=== PATIENT | male | born 1975 | race Caucasian/White ===

== ENCOUNTER 2019-07-08 16:13 | Emergency (ER) | payer OTHER, SELFPAY ==
--- NOTE | ~2019-07-08 | CT_ITS ---
EXAMINATION: CT abdomen pelvis wo con DATE: 07/08/2019 17:00 INDICATION: Left-sided back pain. TECHNIQUE: Computed tomography (CT) of the abdomen and pelvis was performed without intravenous contr ast. Automated exposure control and iterative reconstruction technique were employed. The dose-length product was 1436.04 mGy-cm. COMPARISON: CT abdomen and pelvis 03/08/2019 FINDINGS: The visualized portions of the lung bases are clear without pneumonia or pleural effusion. The heart size is normal. No pericardial effusion. There is diffuse hepatic steatosis. The gallbladde r, spleen, pancreas, adrenal glands, and right kidney are normal. There is mild left hydronephrosis a nd hydroureter. There is a 2 mm stone at left ureterovesicular junction. There are no dilated loops o f bowel. The appendix is normal. There are no pathologically enlarged lymph nodes. There is no free i ntraperitoneal fluid. There is mild thoracic spondylosis. IMPRESSION: 1. 2 mm stone at left ureterovesicular junction with mild left hydronephrosis and hydroureter. Reviewed, dictated and finalized at location A. [employer]
--- NOTE | ~2019-07-08 | XR_ITS ---
EXAMINATION: XR abdomen/kub 1V INDICATION: Left-sided kidney stone and left flank pain TECHNIQUE: Supine views of the abdomen were obtained on 2 radiographs. COMPARISON: CT from today FINDINGS: There is a subtle 2 mm calcification of the left pelvis at the expected location of the lef t ureterovesicular junction. A phlebolith is noted in the right pelvis. The bowel gas pattern is norm al. The osseous structures are unremarkable. IMPRESSION: 1. Subtle 2 mm calcification of the left pelvis at the expected location of the left ureterovesicular junction corresponding to the small stone identified on CT. Reviewed, dictated and finalized at location A. [employer]
[2019-07-08 16:18] VITALS: BP 134/83; PULSE 83; RESP 16; TEMP 36.2; O2SAT 100
--- NOTE | 2019-07-08 16:40 | ED.BACK ---
HPI - Back Pain/Injury General Chief Complaint: Back Pain/Injury Stated Complaint: left flank pain Time Seen by Provider: 07/08/19 16:21 Source: patient and RN notes reviewed Mode of arrival: ambulatory Limitations: no limitations History of Present Illness HPI Narrative: Pt is a 44 y/o male who presents to the ED with c/o a 7/10 sharp left flank pain which began an hour ago. Pt states his pain is intermittent, but has been progressively worsening with each episode since onset. He reports he has had difficulty urinating, but denies hematuria, a fever, or chills. He reports he has had a kidney stone in the past, and has had similar symptoms to this. MD elicited complaint: back pain (left flank pain) Pertinent past history: kidney stones Onset (ago): hour(s) (1 hour ago) Timing: intermittent and progressively worsening (with each episode) Severity: moderate (7/10) Pain scale (0-10): 7 Similar Symptoms Previously: Yes Quality: sharp Location: left flank Radiation: none Exacerbating factors: none Relieving factors: none Associated symptoms: other (difficulty urinating) Related Data Allergies Allergy/AdvReac Type Severity Reaction Status Date / Time No Known Allergies Allergy Uncoded 03/08/19 11:53 Review of Systems Constitutional: Constitutional: Denies chills and Denies fever(s) Genitourinary: Genitourinary: Denies hematuria, Denies dysuria and Reports other (difficulty urinating) [facility] Past Medical History Medical History (Updated 07/08/19 @ 18:04 by Patricia Dyer MD) Effusion, right ankle Fracture of right heel Kidney stone MRSA (methicillin resistant Staphylococcus aureus) infection Right hand fracture Family History Family History (Updated 03/08/18 @ 13:51 by DOCTOR UNKNOWN) Father Family history of liver disease Family history of hepatitis Other Family history of coronary artery disease Family history of malignant neoplasm of urinary bladder Social History Social History Second hand tobacco smoke exposure: No Alcohol intake: current Exam Const: General: no acute distress and well developed Orientation/consciousness: oriented to person, oriented to place, oriented to time and patient oriented x3 HENMT: Head: normocephalic Ears: external ears normal General nose exam: Normal external nose present Eyes: General: appearance normal, both eyes and all related structures Conjunctivae: conjunctivae normal Neck: Neck: normal visual inspection and full ROM Chest: Chest palpation & inspection: normal inspection of the chest and no tenderness Resp: Effort & Inspection: normal respiratory effort Auscultation: clear to auscultation bilaterally Cardio: Rate: regular rate Rhythm: regular rhythm GI: GI Palp: No abdominal tenderness and Yes Soft to palpation Skin: General skin exam: normal color and turgor normal Neuro: General: oriented to person, oriented to place, oriented to time and patient oriented x3 Cognition (Neuro): normal cognition Extrem: General: normal to inspection, full ROM and no pedal edema Psych: Appearance: grossly normal Mental Status: mental status grossly normal Affect: normal affect Course Vital Signs Vital signs: Vital Signs Temperature 36.2 C L 07/08/19 16:18 Pulse Rate 83 07/08/19 16:18 Respiratory Rate 16 07/08/19 16:18 Blood Pressure 134/83 07/08/19 16:18 Pulse Oximetry 100 07/08/19 16:18 Temperature 36.2 C L 07/08/19 16:18 Pulse Rate 78 07/08/19 18:37 Respiratory Rate 18 07/08/19 18:37 Blood Pressure 127/92 H 07/08/19 18:37 Pulse Oximetry 97 07/08/19 18:37 MDM - Back Pain/Injury Lab Data Result diagrams: 07/08/19 16:54 07/08/19 16:54 Labs: Lab Results 07/08/19 07/08/19 07/08/19 Range/Units 16:54 16:54 16:54 WBC 10.8 H (4.5-10.0) K/mm3 RBC 5.50 (4.6-6.20) M/mm3 Hgb 15.1 (14.0-18.0) g/dL Hct 46.0 (42.0-52.0) % MCV 83.6 (80-100) fl MCH 27.5 (
[2019-07-08] MEDS: SODIUM CHLORIDE 0.9% IV 1,000 ML 999 ML IV CONT (16:52)
[2019-07-08] MEDS: KETOROLAC 15 MG/ML VIAL (*BKC) IV PUSH (16:52)
[2019-07-08 17:00] LABS: Basophils Absolute Auto 0.1 K/mm3 (0.0-0.1); Basophils Percent Auto 0.8 % (0.2-1.2); Eosinophils Absolute Auto 0.3 K/mm3 (0-0.3); Hemoglobin 15.1 g/dL (14.0-18.0); Immature Granulocyte Absolute 0.04 K/mm3 (0.00-0.031); Immature Granulocyte Percent A 0.4 % (0-0.5); Lymphocytes Percent Auto 24.9 % (18.3-44.2); Mean Corpuscular HGB Conc 32.8 g/dl (32-36); Mean Corpuscular Hemoglobin 27.5 pg (26-34); Mean Corpuscular Volume 83.6 fl (80-100); Mean Platelet Volume 9.6 fl (7.4-10.4); Monocytes Absolute Auto 0.8 K/mm3 (0.1-0.6); Monocytes Percent Auto 7.6 % (2.6-8.5); Neutrophils Absolute Auto 6.9 K/mm3 (1.3-6.7); Neutrophils Percent Auto 63.3 % (45.5-73.1); Platelet Count Result 307 k/mm3 (150-375); White Blood Count 10.8 K/mm3 (4.5-10.0)
[2019-07-08 17:05] LABS: Add Urine Microscopic? YES; Appearance Urine Clear (Clear); Bacteria Urine Trace /hpf; Bilirubin Urine Negative (Negative); Blood Urine 3+ (Negative); Color Urine Yellow (Yellow); Glucose Urine UA Negative (Negative); Ketones Urine Negative (Negative); Leukocyte Esterase Ur Negative LEU/UL (Negative); Mucus Urine Heavy /lpf; Nitrate Urine Negative (Negative); Protein Urine 1+ mg/dL (Negative); RBC Urine >75 /hpf (0-2); Specific Grav Ur 1.029 (1.001-1.035); Urobilinogen Urine Negative mg/dL (<2.0); WBC Urine 0-3 /hpf
[2019-07-08 17:14] LABS: Blood Urea Nitrogen 22 mg/dL (9-20); Calcium 9.6 mg/dL (8.4-10.2); Carbon Dioxide 21 mmol/L (22-30); Chloride 101 mmol/L (98-107); Estimated CRCL calculation 86 ml/min; Estimated Glomerular Filt Rate > 60; Glucose 88 mg/dL (75-110); Potassium 4.1 mmol/L (3.4-5.0); Sodium 141 mmol/L (137-145)
[2019-07-08 18:37] VITALS: BP 127/92; PULSE 78; RESP 18; O2SAT 97
== END 2019-07-08 18:39 | disposition home or self-care (01) ==
PROVIDERS: Emergency Provider Emergency Medicine; PCP Emergency Medicine
DX: N13.2 Hydronephrosis with renal and ureteral calculous obstruction (principal); Z87.442 Personal history of urinary calculi; Z86.14 Personal history of Methicillin resistant Staphylococcus aureus infection
CPT/HCPCS: 36415; 74018; 74176; 80048; 81001; 85025; 96361; 96374; 99284; J1885; J7030

== ENCOUNTER 2019-10-17 09:13 | Emergency (ER) | payer OTHER, SELFPAY ==
--- NOTE | ~2019-10-17 | CT_ITS ---
EXAMINATION: CT abdomen pelvis w con DATE: 10/17/2019 10:18 INDICATION: Left-sided abdominal pain. Nephrolithiasis. TECHNIQUE: Computed tomography (CT) of the abdomen and pelvis was performed with 100 mL Omnipaque-350 intravenous contrast. Automated exposure control and iterative reconstruction technique were employe d. The dose-length product was 1417.24 mGy-cm. COMPARISON: 07/08/2019 FINDINGS: Lung bases are clear. Heart size is normal. No pericardial or pleural effusion. Diffuse hepatic steat osis. Gallbladder, spleen, pancreas, bilateral adrenal glands and kidneys are normal. Bilateral urete rs appear normal. No evident urolithiasis, hydronephrosis or periureteral stranding.. There are a few scattered colonic diverticula without adjacent from 3 change to suggest diverticulitis. Small bowel and appendix are normal. Any fat-containing umbilical hernia. Bladder is normal. No free intraperiton eal gas or fluid. No pathologically enlarged abdominal or pelvic lymphadenopathy. Bone island at the left femoral neck. There is decreased right femoral head neck offset with mild cystic change suggesti ve of cam-type femoral acetabular impingement. IMPRESSION: 1. No acute intra-abdominal/pelvic process. 2. Mild diverticulosis. 3. Diffuse hepatic steatosis. Reviewed, dictated and finalized at location A.
[2019-10-17 09:22] VITALS: BP 148/82; PULSE 91; RESP 18; TEMP 36.7; O2SAT 97
[2019-10-17 09:30] VITALS: BP 142/82; PULSE 90; O2SAT 97
--- NOTE | 2019-10-17 09:41 | ED.BACK ---
HPI - Back Pain/Injury General Chief Complaint: Back Pain/Injury Stated Complaint: Flank pain, hx kidney stones Time Seen by Provider: 10/17/19 09:22 Source: RN notes reviewed History of Present Illness HPI Narrative: Patient presents emergency department from home for left-sided back pain. Patient states pain began approximately 1 week ago. Pain is located in the left flank and radiates around to the left abdomen. Patient states the pain is described as aching in nature. Is been associated with diarrhea. Denies any fevers or chills chest pain shortness of breath nausea vomiting or any other symptoms states he does have a previous history of kidney stones. 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 when he is bouncing around in a forklift and moving Related Data Allergies Allergy/AdvReac Type Severity Reaction Status Date / Time No Known Allergies Allergy Verified 10/17/19 09:27 Review of Systems Review of Systems: Narrative: Gen.: Denies fevers or chills ENT: Denies congestion Respiratory: Denies shortness of breath or cough CV: Denies chest pain or palpitations GI: See HPI denies burning, urgency, frequency or hematuria Musculoskeletal: Denies back pain or muscle pain Neuro: Denies numbness, tingling, weakness or focal weakness Skin: Denies rash Except as documented, all other systems reviewed and negative [facility] Past Medical History Medical History Effusion, right ankle Fracture of right heel Kidney stone MRSA (methicillin resistant Staphylococcus aureus) infection Right hand fracture Family History Family History (Updated 03/08/18 @ 13:51 by DOCTOR UNKNOWN) Father Family history of liver disease Family history of hepatitis Other Family history of coronary artery disease Family history of malignant neoplasm of urinary bladder Social History Social History Second hand tobacco smoke exposure: No Alcohol intake: current Gender identity (if verbalized by the patient): Male Exam Narrative: Exam Narrative: APPEARANCE: No acute distress, nontoxic, resting in bed HEENT: Normocephalic, atraumatic, OMM RESPIRATORY: No respiratory distress, clear to auscultation bilaterally with no rhonchi wheezing or rales CARDIOVASCULAR: RRR s murmur ABDOMINAL: Soft, nondistended, tender palpation left upper quadrant left lower quadrant, no tenderness right upper quadrant right lower quadrant, no rebound or guarding, left flank tenderness MUSCULOSKELETAl: Moves all extremities. No clubbing, cyanosis or edema. Back: No midline thoracic lumbar tenderness palpation, tender palpation over left paravertebral muscles L1-3 pain increased with rotation of the torso NEURO: Awake and alert. Following commands, speech normal, no focal deficits. Muscle strength 5 out of 5 in the bilateral lower extremities SKIN:: Warm, dry. Normal Color PSYCHIATRIC: Normal affect/mood Course Course Emergency Course: Patient's abdomen is soft without significant pain or signs of surgical abdomen on serial exams. Lab and x-ray evaluations are reviewed and patient is felt to be a reasonable candidate for outpatient management. Patient was instructed as to limitations of x-ray and laboratory evaluation and encouraged to return to ED or primary physician for repeat exam in 12 hours if continued or worsening pain Vital Signs Vital signs: Vital Signs Temperature 98.1 F 10/17/19 09:22 Pulse Rate 91 10/17/19 09:22 Respiratory Rate 18 10/17/19 09:22 Blood Pressure 148/82 H 10/17/19 09:22 Pulse Oximetry 97 10/17/19 09:22 Temperature 98.1 F 10/17/19 09:22 Pulse Rate 91 10/17/19 09:22 Respiratory Rate 18 10/17/19 09:22 Blood Pressure 148/82 H 10/17/19 09:22 Pulse Oximetry 97 10/17/19 09:22 MDM - Back Pain/Injury MDM Narrative
[2019-10-17 09:48] LABS: Basophils Absolute Auto 0.1 K/mm3 (0.0-0.1); Basophils Percent Auto 0.7 % (0.2-1.2); Eosinophils Absolute Auto 0.2 K/mm3 (0-0.3); Eosinophils Percent Auto 1.9 % (0-4.4); Hematocrit 45.3 % (42.0-52.0); Hemoglobin 15.5 g/dL (14.0-18.0); Immature Granulocyte Absolute 0.05 K/mm3 (0.00-0.031); Immature Granulocyte Percent A 0.5 % (0-0.5); Lymphocytes Absolute Auto 2.52 K/mm3 (0.9-3.2); Lymphocytes Percent Auto 22.7 % (18.3-44.2); Mean Corpuscular HGB Conc 34.2 g/dl (32-36); Mean Corpuscular Hemoglobin 28.4 pg (26-34); Mean Corpuscular Volume 83.1 fl (80-100); Mean Platelet Volume 9.4 fl (7.4-10.4); Monocytes Absolute Auto 0.9 K/mm3 (0.1-0.6); Monocytes Percent Auto 7.9 % (2.6-8.5); Neutrophils Absolute Auto 7.4 K/mm3 (1.3-6.7); Neutrophils Percent Auto 66.3 % (45.5-73.1); Platelet Count Result 289 k/mm3 (150-375); Red Blood Count 5.45 M/mm3 (4.6-6.20); White Blood Count 11.1 K/mm3 (4.5-10.0)
[2019-10-17 09:50] LABS: Add Urine Microscopic? NO; Appearance Urine Clear (Clear); Bilirubin Urine Negative (Negative); Blood Urine Negative (Negative); Color Urine Straw (Yellow); Glucose Urine UA Negative (Negative); Ketones Urine Negative (Negative); Leukocyte Esterase Ur Negative LEU/UL (Negative); Nitrate Urine Negative (Negative); Protein Urine Negative (Negative); Specific Grav Ur 1.015 (1.001-1.035); Urobilinogen Urine Negative mg/dL (<2.0)
[2019-10-17] MEDS: SODIUM CHLORIDE 0.9% IV 1,000 ML 999 ML IV CONT (09:50)
[2019-10-17 10:00] LABS: Blood Urea Nitrogen 15 mg/dL (9-20); Calcium 9.4 mg/dL (8.4-10.2); Carbon Dioxide 26 mmol/L (22-30); Chloride 103 mmol/L (98-107); Estimated CRCL calculation 103 ml/min; Estimated Glomerular Filt Rate > 60; Glucose 82 mg/dL (75-110); Potassium 3.9 mmol/L (3.4-5.0); Sodium 137 mmol/L (137-145)
[2019-10-17 10:30] VITALS: BP 126/79; PULSE 76; RESP 18; O2SAT 97
== END 2019-10-17 11:00 | disposition home or self-care (01) ==
PROVIDERS: Emergency Provider Emergency Medicine; PCP Emergency Medicine
DX: M54.5 Low back pain (principal); Z87.442 Personal history of urinary calculi; Z86.14 Personal history of Methicillin resistant Staphylococcus aureus infection
CPT/HCPCS: 36415; 74177; 80048; 81003; 85025; 96361; 96365; 99284; J0131; J7030; Q9967

== ENCOUNTER 2019-12-30 00:19 | Emergency (ER) | payer OTHER, SELFPAY ==
[2019-12-30 00:22] VITALS: BP 149/86; PULSE 84; RESP 14; TEMP 36.6; O2SAT 98
--- NOTE | 2019-12-30 00:52 | ED.DENTAL ---
HPI - Dental/Oral General Chief complaint: Dental/Oral Stated complaint: filling fell out of tooth Time Seen by Provider: 12/30/19 00:46 History of Present Illness HPI Narrative: Patient presents with a toothache on the right upper tooth #3. He lost a filling there before COVID, and was told to just bear with it. In the last 2 days the pain is gotten much worse. He has been taking Tylenol without much improvement. He has not had fever chills or sweats. His called for an appointment today but was unable to get. He just worked a 16-hour shift at [employer]. He needs a note to go back to work. He has no medical problem. He had surgery on his right ankle. He chews tobacco, does not drink alcohol, does not do drugs. Complaint: tooth pain Onset (ago): month(s) Duration: constant Severity: moderate Severity scale (1-10): 6 Exacerbating factors: chewing, cold and other (Air) Context: history of dental caries Treatment prior to arrival: other (Tylenol) Related Data Allergies Allergy/AdvReac Type Severity Reaction Status Date / Time No Known Allergies Allergy Verified 10/17/19 09:27 Review of Systems Review of Systems: Narrative: CONSTITUTIONAL: Denies fever, chills, or sweats. EYES: Denies visual changes, redness, or discharge. ENT: Denies rhinorrhea, congestion, sore throat, or otalgia. Just the tooth ache. CARDIOVASCULAR: Denies chest pain, palpitations, or edema. RESPIRATORY: Denies cough or dyspnea. GASTROINTESTINAL: Denies abdominal pain, nausea, vomiting, or diarrhea. GENITOURINARY: Denies dysuria or hematuria. SKIN: Denies rash or itching. MUSCULOSKELETAL: Denies back pain, joint pain, or myalgia. NEUROLOGIC: Denies headache, numbness, or weakness. . All systems reviewed & are unremarkable except as noted in HPI and below PMFSH Past Medical History Medical History Effusion, right ankle Fracture of right heel Kidney stone MRSA (methicillin resistant Staphylococcus aureus) infection Overweight Right hand fracture Toothache Surgical History Surgical History (Updated 12/30/19 @ 00:58 by Fabby Green MD) History of ankle surgery Family History Family History (Updated 03/08/18 @ 13:51 by DOCTOR UNKNOWN) Father Family history of liver disease Family history of hepatitis Other Family history of coronary artery disease Family history of malignant neoplasm of urinary bladder Social History Social History (Updated 12/30/19 @ 00:58 by Fabby Green MD) Smokeless tobacco user: chewing tobacco Second hand tobacco smoke exposure: No Alcohol intake: current Gender identity (if verbalized by the patient): Male Exam Narrative: Exam Narrative: GENERAL: Well-appearing, well-nourished, and in no acute distress. Overweight and lots of tattoos. HEAD: Normocephalic, atraumatic. EYES: PERRLA and EOMI. ENT: Nares clear, no rhinorrhea or epistaxis. Mucous membranes moist. Fillings in tooth #3. No obvious fracture no gum swelling. NECK: Supple. CHEST: Clear to auscultation. No respiratory distress. HEART: Regular rate and rhythm. No murmur heard. Normal peripheral pulses. ABDOMEN: Soft, nontender, nondistended, normal active bowel sounds. EXTREMITIES: Normal range of motion. No edema. SKIN: Warm, dry, no rash. NEURO: No focal deficits. Alert and oriented x3. PSYCH: Normal mood and affect. Course Vital Signs Vital signs: Vital Signs Temperature 97.9 F 12/30/19 00:22 Pulse Rate 84 12/30/19 00:22 Respiratory Rate 14 12/30/19 00:22 Blood Pressure 149/86 H 12/30/19 00:22 Pulse Oximetry 98 12/30/19 00:22 Temperature 97.9 F 12/30/19 00:22 Pulse Rate 84 12/30/19 00:22 Respiratory Rate 14 12/30/19 00:22 Blood Pressure 149/86 H 12/30/19 00:22 Pulse Oximetry 98 12/30/19 00:22 MDM - Dental/Oral Differential Diagnosis Differential diagnosis: Likely dental caries and toothache Medical Records Attestation:
[2019-12-30] MEDS: KETOROLAC (*BKC) 60 MG/2 ML VIAL IM (00:57)
== END 2019-12-30 01:00 | disposition home or self-care (01) ==
PROVIDERS: Emergency Provider Emergency Medicine; PCP Emergency Medicine
DX: K08.89 Other specified disorders of teeth and supporting structures (principal); K02.9 Dental caries, unspecified
CPT/HCPCS: 96372; 99283; J1885

== ENCOUNTER 2020-01-14 08:11 | Emergency (ER) | payer OTHER, SELFPAY ==
--- NOTE | ~2020-01-14 | XR_ITS ---
EXAMINATION: XR ankle RT min 3V EXAM DATE: 01/14/2020 08:41 INDICATION: Chronic right ankle pain. TECHNIQUE: Right ankle frontal, lateral and oblique projections obtained and reviewed. There is no p rior study for comparison. FINDINGS: The right ankle mortise appears intact. There is subtalar arthrodesis with 2 surgical sc rews without surrounding lucency. Some additional calcaneal screw tracks from hardware that has been removed. There are no acute fractures or dislocations identified. There is no subcutaneous gas. The soft tissue is unremarkable. Ankle joint space well maintained. IMPRESSION: Intact right subtalar arthrodesis. Reviewed, dictated and finalized at location B.
[2020-01-14 08:11] VITALS: BP 136/83; PULSE 72; RESP 16; TEMP 36.2; O2SAT 100
--- NOTE | 2020-01-14 08:35 | ED.EXTPRO ---
HPI - Extremity Problem General Chief complaint: Extremity Problem,Nontraumatic Stated complaint: chronic R ankle pain Time Seen by Provider: 01/14/20 08:25 Source: patient Mode of arrival: ambulatory Limitations: no limitations History of Present Illness HPI Narrative: Patient presents with right ankle pain. In 2000 he shattered his ankle and heel. Initially he had pins put in at [facility]. It did not heal well and he went to [facility] and had his heel fused to the hindfoot. He says every so often the pain flares up and he has difficulty bearing weight. He has not followed up in years. Today the pain is 8 out of 10. He is having a hard time bearing weight with. No new injury. No history of gout. He does have some generalized joint pains in the knees hips and low back in the last 5 years. 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 He denies any recent illness. MD Complaint: extremity pain Onset (ago): day(s) Pain Consistency: constant Location: right Severity scale (1-10): 8 Relieving factors: immobilization Exacerbating factors: weight bearing Associated symptoms: denies other symptoms Related Data Home Medications Medication Instructions Recorded Confirmed ibuprofen 01/14/20 Allergies Allergy/AdvReac Type Severity Reaction Status Date / Time No Known Allergies Allergy Verified 01/14/20 08:20 Review of Systems Review of Systems: Narrative: CONSTITUTIONAL: Denies fever, chills, or sweats. ENT: Denies rhinorrhea, congestion, sore throat, or otalgia. CARDIOVASCULAR: Denies chest pain, palpitations, or edema. RESPIRATORY: Denies cough or dyspnea. GASTROINTESTINAL: Denies abdominal pain, nausea, vomiting, or diarrhea. SKIN: Denies rash or itching. MUSCULOSKELETAL: He also has back pain, joint pain. NEUROLOGIC: Denies headache, numbness, or weakness. All systems reviewed & are unremarkable except as noted in HPI and below PMFSH Surgical History Surgical History (Updated 12/30/19 @ 00:58 by Fabby Green MD) History of ankle surgery Family History Family History (Updated 03/08/18 @ 13:51 by DOCTOR UNKNOWN) Father Family history of liver disease Family history of hepatitis Other Family history of coronary artery disease Family history of malignant neoplasm of urinary bladder Social History Social History Smokeless tobacco user: chewing tobacco Second hand tobacco smoke exposure: No Alcohol intake: current Gender identity (if verbalized by the patient): Male Exam Narrative: Exam Narrative: GENERAL: Well-appearing, well-nourished, and in no acute distress. HEAD: Normocephalic, atraumatic. EYES: PERRLA and EOMI. ENT: Nares clear, no rhinorrhea or epistaxis. Mucous membranes moist. NECK: Supple. CHEST: Clear to auscultation. No respiratory distress. HEART: Regular rate and rhythm. No murmur heard. Normal peripheral pulses. ABDOMEN: Soft, nontender, nondistended, normal active bowel sounds. EXTREMITIES: No edema. Deformity of the right ankle, no tenderness on palpation SKIN: Warm, dry, no rash. NEURO: No focal deficits. Alert and oriented x3. PSYCH: Normal mood and affect. Course Vital Signs Vital signs: Vital Signs Temperature 97.2 F L 01/14/20 08:11 Pulse Rate 72 01/14/20 08:11 Respiratory Rate 16 01/14/20 08:11 Blood Pressure 136/83 01/14/20 08:11 Pulse Oximetry 100 01/14/20 08:11 Temperature 97.2 F L 01/14/20 08:11 Pulse Rate 78 01/14/20 09:10 Respiratory Rate 16 01/14/20 09:10 Blood Pressure 118/75 01/14/20 09:10 Pulse Oximetry 100 01/14/20 09:10 Discharge Plan Discharge Clinical Impression: Chronic pain of right ankle Patient Disposition: Home, Self-Care Condition: Stable Instructions: Ankle Sprain (ED) Additional Instructions: Call [facility] and get back into the orthopedic clinic for reevaluation and possible aline
[2020-01-14] MEDS: IBUPROFEN 600 MG TABLET PO (08:40)
[2020-01-14] MEDS: oxyCODONE/ACETAMINOPHEN 5-325 MG TABLET 1 TABLET PO (08:40)
[2020-01-14 09:10] VITALS: BP 118/75; PULSE 78; RESP 16; O2SAT 100
== END 2020-01-14 09:11 | disposition home or self-care (01) ==
PROVIDERS: Emergency Provider Emergency Medicine; PCP Emergency Medicine
DX: G89.29 Other chronic pain (principal); M25.571 Pain in right ankle and joints of right foot; F17.290 Nicotine dependence, other tobacco product, uncomplicated
CPT/HCPCS: 73610; 99283; A9270

== ENCOUNTER 2021-06-13 05:25 | Emergency (ER) | payer OTHER, SELFPAY ==
[2021-06-13 05:45] VITALS: BP 117/94; PULSE 103; RESP 18; TEMP 36.6; O2SAT 99
[2021-06-13 06:18] VITALS: BP 154/94; PULSE 93; RESP 17; O2SAT 98
--- NOTE | 2021-06-13 06:42 | ED.URI ---
HPI - URI/Sore Throat General Chief Complaint: Upper Respiratory Infection Stated Complaint: sore throat and pain with swallowing Time Seen by Provider: 06/13/21 06:35 History of Present Illness HPI Narrative: Patient is a 46-year-old male who presents ER with sinus congestion lasted 2 days. No fevers or chills. Associate with sore throat worsening today that is causing pain with swallowing. Has history of strep in the past to cause discomfort in his throat like this. No limitation in range of motion of the neck. Reports daughter was sick with a viral syndrome last week and was negative for COVID. He has no loss of taste or smell. He has been vaccinated and boosted against COVID. Reports cough that occurs because he feels like he is trying to break something up in the back of his throat. No improvement with Flonase. Related Data Home Medications Medication Instructions Recorded Confirmed ibuprofen 01/14/20 Allergies Allergy/AdvReac Type Severity Reaction Status Date / Time No Known Allergies Allergy Verified 06/13/21 06:20 Review of Systems Constitutional: Constitutional: Denies chills, Denies fever(s) and Denies weakness ENT: Reports nasal congestion and Reports sore throat Respiratory: Respiratory: Denies cough, Denies dyspnea and Denies wheezing Gastrointestinal: Gastrointestinal: Denies nausea and Denies vomiting PMFSH Past Medical History Medical History (Updated 06/13/21 @ 06:47 by Gato Randall MD) Effusion, right ankle Fracture of right heel Kidney stone MRSA (methicillin resistant Staphylococcus aureus) infection Overweight Right hand fracture Toothache Surgical History Surgical History (Updated 12/30/19 @ 00:58 by Fabby Green MD) History of ankle surgery Family History Family History (Updated 03/08/18 @ 13:51 by DOCTOR UNKNOWN) Father Family history of liver disease Family history of hepatitis Other Family history of coronary artery disease Family history of malignant neoplasm of urinary bladder Social History Social History Smokeless tobacco user: chewing tobacco Second hand tobacco smoke exposure: No Alcohol intake: current Gender identity (if verbalized by the patient): Male Exam Narrative: GENERAL: Well-appearing, well-nourished, and in no acute distress. HEAD: Normocephalic, atraumatic. ENT: Mucous membranes moist. Mild pharyngeal erythema without tonsillar hypertrophy or exudate. Uvula midline and nonedematous. NECK: Supple. CHEST: Clear to auscultation. No respiratory distress. HEART: Regular rate and rhythm. Normal peripheral pulses. NEURO: Alert and oriented x3. PSYCH: Normal mood and affect. Course Vital Signs Vital signs: Vital Signs Temperature 97.9 F 06/13/21 05:45 Pulse Rate 103 H 06/13/21 05:45 Respiratory Rate 18 06/13/21 05:45 Blood Pressure 117/94 H 06/13/21 05:45 Pulse Oximetry 99 06/13/21 05:45 Temperature 97.9 F 06/13/21 05:45 Pulse Rate 93 06/13/21 06:18 Respiratory Rate 17 06/13/21 06:18 Blood Pressure 154/94 H 06/13/21 06:18 Pulse Oximetry 98 06/13/21 06:18 MDM - URI/Sore Throat Lab Data Labs: Lab Results 06/13/21 Range/Units 07:03 SARS-CoV-2 RNA (RT-PCR) Pending Strep Screen Presumptive Negative *(Reference Range: Negative)* Discharge Plan Discharge Clinical Impression: Person under investigation for COVID-19, Acute viral syndrome Patient Disposition: Home, Self-Care Condition: Stable Instructions: Viral Syndrome (ED), COVID-19 (Coronavirus Disease 2019) (ED) Additional Instructions: Return the ER if you cannot breathe, you cannot swallow, or you have additional concerns. Use a humidifier/vaporizer to help with congestion at night. May also purchase Mucinex D that contains phenylephrine to help with your congestion. Would also anna
[2021-06-13 13:26] LABS: SARS-CoV-2 RNA PCR Positive
== END 2021-06-13 07:29 | disposition home or self-care (01) ==
LOC: ANHED 06:54
PROVIDERS: Emergency Provider Emergency Medicine; PCP Hospitalist
DX: U07.1 COVID-19 (principal); Z87.442 Personal history of urinary calculi; Z86.14 Personal history of Methicillin resistant Staphylococcus aureus infection; E66.3 Overweight; Z68.39 Body mass index [BMI] 39.0-39.9, adult; F17.220 Nicotine dependence, chewing tobacco, uncomplicated
CPT/HCPCS: 87081; 87880; 99283; C9803; U0003; U0005

== ENCOUNTER 2023-05-06 00:35 | Emergency (ER) | payer OTHER, SELFPAY ==
[2023-05-06] VITALS (7 sets, daily range): BP systolic 130–150; BP diastolic 84–98; PULSE 74–97; RESP 16–17; TEMP 36.6; O2SAT 95–100
--- NOTE | ~2023-05-06 | XR_ITS ---
EXAMINATION: XR wrist RT min 3V INDICATION: Right wrist pain TECHNIQUE: Four views of the right wrist are obtained. COMPARISON: 11/10/2016 FINDINGS: No fracture, dislocation, or subluxation. The bones, soft tissues, and joint spaces are nor mal. IMPRESSION: 1. No acute osseous abnormality. Reviewed, dictated and finalized at location F. [employer]
--- NOTE | 2023-05-06 06:42 | ED.GENADULT ---
HPI - General Adult General Chief complaint: Extremity Injury, Upper Stated complaint: R wrist injury Time Seen by Provider: 05/06/23 06:37 History of Present Illness HPI narrative: 48-year-old male presenting with right wrist injury. He had a steel pipe fall on his arm work. He has swelling. Progress Clerk strength intact. No weakness. Related Data Home Medications Medication Instructions Recorded Confirmed ibuprofen 01/14/20 Allergies Allergy/AdvReac Type Severity Reaction Status Date / Time No Known Allergies Allergy Verified 05/06/23 06:10 [facility] Past Medical History Medical History Effusion, right ankle Fracture of right heel Kidney stone MRSA (methicillin resistant Staphylococcus aureus) infection Overweight Right hand fracture Toothache Surgical History Surgical History History of ankle surgery Family History Family History Father Family history of liver disease Family history of hepatitis Other Family history of coronary artery disease Family history of malignant neoplasm of urinary bladder Social History Social History Smokeless tobacco user: chewing tobacco Second hand tobacco smoke exposure: No Alcohol intake: current Gender identity (if verbalized by the patient): Male Exam Narrative: APPEARANCE: No apparent distress. Head: atraumatic. EYES: EOMI, NOSE: Atraumatic NECK: Trachea midline RESPIRATORY: No increased rate of breathing CARDIOVASCULAR: RRR, ABDOMINAL: Non-distended MUSCULOSKELETAl: Focal exam of the upper extremity revealed hematoma over the radial side of the forearm. Progress Clerk strength, Radian ulnar median nerve intact. Pulses intact. Cap refill less than 2 seconds. NEURO: Alert. Moving 4/4 extremities SKIN:: Warm, dry. Normal color PSYCHIATRIC: Normal affect Course Vital Signs Vital signs: Vital Signs Temperature 97.9 F 05/06/23 00:36 Pulse Rate 97 05/06/23 00:36 Respiratory Rate 16 05/06/23 00:36 Blood Pressure 149/84 H 05/06/23 00:36 Pulse Oximetry 100 05/06/23 00:36 Oxygen Delivery Room Air 05/06/23 00:36 Temperature 97.9 F 05/06/23 00:36 Pulse Rate 85 05/06/23 05:30 Respiratory Rate 17 05/06/23 05:30 Blood Pressure 150/95 H 05/06/23 05:30 Pulse Oximetry 99 05/06/23 05:30 Oxygen Delivery Room Air 05/06/23 00:36 Medical Decision Making MDM Narrative Medical decision making narrative: -Course: 48-year-old male presenting with wrist pain. X-ray negative for fracture. Patient has a small hematoma. Will be discharged with NSAIDs. 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 -Independent interpretation of studies: Wrist x-ray negative for fracture -Interventions: Motrin, Tylenol -Shared decision making / Disposition: Discharged -RX Motrin, Tylenol Vital Signs Vital Signs: Vital Signs Temperature 97.9 F 05/06/23 00:36 Pulse Rate 97 05/06/23 00:36 Respiratory Rate 16 05/06/23 00:36 Blood Pressure 149/84 H 05/06/23 00:36 Pulse Oximetry 100 05/06/23 00:36 Oxygen Delivery Room Air 05/06/23 00:36 Temperature 97.9 F 05/06/23 00:36 Pulse Rate 85 05/06/23 05:30 Respiratory Rate 17 05/06/23 05:30 Blood Pressure 150/95 H 05/06/23 05:30 Pulse Oximetry 99 05/06/23 05:30 Oxygen Delivery Room Air 05/06/23 00:36 Discharge Plan Discharge Clinical Impression: Acute wrist pain Patient Disposition: Home, Self-Care Condition: Stable Instructions: Antibiotic Form, Arm Pain (ED) Additional Instructions: For please follow-up with your primary care physician if your pain does not improve over the next several days. Please use Motrin
== END 2023-05-06 07:11 | disposition home or self-care (01) ==
PROVIDERS: Emergency Provider Emergency Medicine; PCP Hospitalist
DX: S60.211A Contusion of right wrist, initial encounter (principal); E66.3 Overweight; Z68.38 Body mass index [BMI] 38.0-38.9, adult; F17.220 Nicotine dependence, chewing tobacco, uncomplicated; Z86.14 Personal history of Methicillin resistant Staphylococcus aureus infection; Z87.442 Personal history of urinary calculi; W20.8XXA Other cause of strike by thrown, projected or falling object, initial encounter
CPT/HCPCS: 73110; 99283